=== PATIENT | female | born 1950 | race Caucasian/White ===

== ENCOUNTER 2017-07-21 16:55 | Emergency (ER) | payer MEDICARE, OTHER ==
[2016-04-05 08:01] VITALS: BMI 29.7
[~2017-07-21 16:55] MED LIST: BAYER CHEWABLE81 MG PO; CALCIUM 500 + D1 TAB PO; EZFE 200200 MG PO; GABAPENTIN100 MG PO; HYDROCHLOROTHIA50 MG PO; MAG-OX 400 MG400 MG PO; MULTIPLE VITAMI1 TA1 PO; NORVASC2.5 MG PO; OMEPRAZOLE40 MG PO; PEPCID40 MG PO; POTASSIUM99 M1 PO; PRILOSEC20 MG PO; VITAMIN B-1000 MCG/M; VITAMIN B-1000 MCG/M IM
[2017-07-21 17:33] LABS: BASOPHILS 0.3 % (0-2); EOSINOPHILS 1.3 % (0-7); HEMATOCRIT 35.3 % (36.0-48.0); HEMOGLOBIN 11.1 g/dL (12-16); IMMATURE GRANULOCYTES 0.2 % (0-5); LYMPHOCYTES 18.1 % (15-50); MCH 26.7 pg (26.0-34.0); MCHC 31.4 g/dL (31.0-37.0); MCV 84.9 fL (80.0-100.0); MEAN PLATELET VOLUME 9.9 fL (7.4-10.4); MONOCYTES 8.3 % (2-11); NEUTROPHILS 71.8 % (40-80); RBC 4.16 10x6/uL (4.00-5.40); RDW 14.2 % (11.5-14.5); WBC 6.1 10x3/uL (4.8-10.8)
[2017-07-21 17:37] LABS: PLATELET COUNT 320 10x3/uL (130-400)
[2017-07-21 17:59] LABS: ALBUMIN 3.4 g/dL (3.4-5.0); ALKALINE PHOSPHATASE 72 U/L (46-116); ALT (SGPT) 20 U/L (10-68); BILIRUBIN - TOTAL 0.13 mg/dL (0.2-1.3); CALC OSMOLALITY 293 mosm/kg (275-300); CALCIUM 9.1 mg/dL (8.5-10.1); CARBON DIOXIDE 31.2 mmol/L (21.0-32.0); CHLORIDE - SERUM 106 mmol/L (98-107); CREATININE - SERUM 1.1 mg/dL (0.6-1.3); GLUCOSE 93 mg/dL (74-106); POTASSIUM - SERUM 3.5 mmol/L (3.5-5.1); SODIUM 145 mmol/L (136-145); UREA NITROGEN 27 mg/dL (7-18); eGFR NON AFRICAN AMERICAN 52 mL/min (90-120)
[2017-07-21 18:01] LABS: CHOL - HDL RATIO 2.7 ratio (2.3-4.1); CHOLESTEROL, TOTAL 223 mg/dL (0-200); CKMB 0.4 U/L (0.0-3.6); CREATINE KINASE 71 UL (21-215); HDL CHOLESTEROL 83 mg/dL (32-96); LDL CHOLESTEROL 117 mg/dL (0-100); LDL-HDL RATIO 1.4 ratio (1.5-3.5); TRIGLYCERIDE 118 mg/dL (30-200)
[2017-07-21 18:26] LABS: TROPONIN-I < 0.017 ng/mL (0.000-0.060)
== END 2017-07-21 19:00 | disposition home or self-care (01) ==
LOC: D.ER 16:55
PROVIDERS: Emergency Medicine
DX: R07.89 Other chest pain (principal); I10 Essential (primary) hypertension; K21.9 Gastro-esophageal reflux disease without esophagitis; I49.3 Ventricular premature depolarization

== ENCOUNTER 2017-08-02 07:00 | Outpatient (CLI) | payer MEDICARE, OTHER ==
[~2017-08-02] VITALS: Ht 167.6 cm; Wt 84.1 kg
--- NOTE | ~2017-08-02 | HEMODYNAMI ---
PATIENT:JIMMIE CARDOSO MEDICAL RECORD: [id number] : 50 LOCATION:D.SUSI ADMISSION DATE: 08/02/17 Generatedon:08/02/20179:22 Patient name: JIMMIE CARDOSO Patient #: [id number] SSN: : 1950 Date of study: 08/02/2017 Page: Of Hemodynamic Procedure Report Patient Data Patient Demographics Procedure consent was obtained First Name: JIMMIE Gender: Female Last Name: WALKER : 1950 [facility] Initial: TARA Age: 67 year(s) Patient #: [id number] Race: Unknown Additional ID: [id number] Contact details Address: [address] [place] [address] State: [place] City: [place] Zip code: [address] Past Medical History Allergies Allergen Reaction Date Comments Reported Other allergy 12/03/2014 Meclymam Other allergy 08/02/2017 mecamylamine Admission Admission Data Admission Date: 08/02/2017 Admission Time: 9:00 Lab Results Lab Result Date: 08/02/2017 Lab Result Time: 7:30 Biochemistry Name Units Result Min Max BUN mg/dl 35 --(----)-* 7 18 Creatinine mg/dl 0.8 --(-*--)-- 0.6 1.3 CBC Name Units Result Min Max Hematocrit % 35 *-(----)-- 42 54 Hemoglobin g/dl 11.1 *-(----)-- 13.5 17.5 Procedure Procedure Types Cath Procedure Diagnostic Procedure LHC LHC w/Coronaries Miscellaneous Procedures Moderate Sedation up to 30 minutes Procedure Description Procedure Date Procedure Date: 08/02/2017 Procedure Start Time: 9:08 Procedure End Time: 9:21 Procedure Staff Name Function Felix Mores MD Performing Physician Ravi Casey RT Monitor Bertha Maldonado RT Scrub Scott Jensen RN Nurse Marvin Lizama RN Supervisor Pressing Department Procedure Data Cath Procedure Fluoroscopy Diagnostic fluoroscopy Total fluoroscopy Time: time: 1.73 min 1.73 min Diagnostic fluoroscopy Total fluoroscopy dose: 353 dose: 353 mGy mGy Contrast Material Contrast Material Type Amount (ml) Isovue 300 61 Entry Location Entry Primary Successful Side Size Upsize Upsize Entry Closure Succes sful Closure Location (Fr) 1 (Fr) 2 (Fr) Remarks Device Remarks Femoral Right 5 Fr Exoseal artery Estimated blood loss: 5 ml Diagnostic catheters Device Type Used For End Catheter Placement Cordis 5Fr JL 4.0 Procedure Catheter (MP) Cordis 5Fr 3DRC Catheter Procedure (MP) Cordis 5Fr Pigtail Procedure Catheter (MP) Procedure Complications No complications Procedure Medications Medication Administration Route Dosage Oxygen NC 2 l/min Lidocaine 2% added to field 20 Heparin Flush Bag added to field 2 bags (1000units/500ml NS) 0.9% NaCl I.V. 100 ml/hr Versed I.V. 1 mg Fentanyl I.V. 50 mcg Versed I.V. 1 mg Fentanyl I.V. 50 mcg Hemodynamics Rest HGB: 11.1 (g/dl) Heart Rate: 68 (bpm) Pressure Samples Time Site Value (mmHg) Purpose Heart Use Rate(bpm) 9:18 LV 163/2,28 EDP 63 9:18 LV 157/2,24 Snapshot 66 9:19 AO 156/79(110) Pullback 75 9:19 LV 182/8,20 Pullback 75 Gradients Valve Time Site 1 Site 2 Mean SEP/DFP Peak To Heart Use (mmHg) (sec/min) Peak Rate (mmHg) (bpm) Aortic 9:19 LV AO 14 19 26 75 182/8,20 156/79(110) Calculations Valve P-P Mean Valve Index Valve Source Name Gradient Area Flow (cm2) Aortic 26 14 26 14 Snapshots Pre Cath Intra NCS Post Cath Vital Signs Time Heart Resp SPO2 etCO2 NIBP (mmHg) Rhythm Pain Sedation Rate (ipm) (%) (mmHg) Status Level (bpm) 8:53:17 68 22 99 162/79(143) NSR 0 (11) 10(A) , No pain 8:58:04 64 18 98 156/84(137) NSR 0 (11) 10(A) , No pain 9:02:48 65 16 97 41.6 147/79(129) NSR 0 (11) 10(A) , No pain 9:07:31 61 15 98 44.6 130/74(104) NSR 0 (11) 9(A) , No pain 9:12:12 64 15 98 42.3 144/75(124) NSR 0 (11) 9(A) , No pain 9:16:54 65 15 98 42.3 148/78(127) NSR 0 (11) 9(A) , No pain 9:21:35 72 16 99 43.8 145/85(119) NSR 0 (11) 10(A) , No pain Medications Time Medication Route Dose Verified Delivered Reason Notes Effec tiveness by by 9:01:28 Oxygen NC 2 Felix Buffie used for l/min Lito Jensen RN procedure 9:01:36 Lidocaine 2% added 20ml Felix Buffie for local to vial Lito Jensen RN anesthetic field 9:01:43 Heparin Flush added 2 Felix Buffie used for Bag to bags Lito Jensen RN procedure (1000units/500ml field NS) 9:01:55 0.9% NaCl I.V. 100 Felix Buffie Per ml/hr Lito Jensen RN physician 9:04:03 Versed I.V. 1 mg Felix Buffie for Lito Jensen RN sedation 9:04:08 Fentanyl I.V. 50 Felix Buffie for mcg Lito Jensen RN sedation 9:13:26 Versed I.V. 1 mg Felix Buffie for Lito Jensen RN sedation 9:13:31 Fentanyl I.V. 50 Felix Buffie for mcg Lito Jensen RN sedation Procedure Log Time Note 8:30:16 Marvin Lizama RN sent for patient. Start room use. 8:38:38 Informed consent obtained and on chart 8:39:14 Diagnostic Cath status Elective 8:39:21 Time tracking: Regular hours 8:39:25 Plan of Care:Hemodynamics will remain stable., Cardiac rhythm will remain stable., Comfort level will be maintained., Respiratory function will remain adequate., Patient/ family verbilizes understanding of procedure., Procedure tolerated without complication., Recovers from procedure without complications.. 8:39:43 H&P Date Dictated: 07/16/2017 Within 30 days and on chart., H&P Addendum completed by physician on day of procedure. (MUST COMPLETE FOR ALL OUTPATIENTS). 8:42:21 Lab Result : Hemoglobin 11.1 g/dl 8:42:21 Lab Result : Hematocrit 35 % 8:42:21 Lab Result : BUN 35 mg/dl 8:42:21 Lab Result : Creatinine 0.8 mg/dl 8:45:11 Patient received from Pre/Post Procedure Room to CCL 1 Alert and oriented. Tansferred to table in Supine position. 8:49:19 Warm blankets applied, and kelsey hugger turned on for patient comfort. 8:49:20 Correct patient and procedure confirmed by team. 8:49:21 ECG and BP/O2 sat monitors applied to patient. 8:49:22 Pre-procedure instructions explained to patient. 8:49:23 Pre-op teaching completed and patient verbalized understanding. 8:49:25 Family in waiting room. 8:52:17 Vital chart was started 8:59:24 Baseline sample Acquired. 8:59:26 Rhythm: sinus rhythm 8:59:28 Full Disclosure recording started 8:59:58 Patient allergic to Other allergymecamylamine 9:00:00 Is the patient allergic to Iodine/contrast media? No. 9:00:18 Is patient on blood thinner?No 9:00:29 Patient diabetic? No. 9:00:36 Previous problem with sedation/anesthesia? No ? 9:00:37 Snore? Yes 9:00:38 Sleep apnea? No 9:00:39 Deviated septum? No 9:00:41 Opens mouth fully? Yes 9:00:41 Sticks out tongue? Yes 9:00:43 Airway obstruction? No ? 9:00:45 Dentures? No ? 9:00:48 Pre procedure: right dorsailis pedis pulse 2+ Normal; easily identifiable; not easily obliterated 9:00:50 Patient pain scale 0/10 ?. 9:01:20 IV patent on arrival in left antecubital with 0.9% NaCl at O. 9:01:28 Oxygen 2 l/min NC was administered by Scott Jensen RN; used for procedure; 9:01:35 Lab results completed and on chart. 9:01:36 Lidocaine 2% 20ml vial added to field was administered by Scott Jensen RN; for local anesthetic; 9:01:38 Right groin area was prepped with chlora-prep and draped in sterile fashion 9:01:40 Alarms reviewed by RCarmencita N. 9:01:40 Sharps counted by scrub and verified by R.N. 9:01:41 Physician arrived 9:01:43 Heparin Flush Bag (1000units/500ml NS) 2 bags added to field was administered by Scott Jensen RN; used for procedure; 9::47 Use device set Femoral Dx 9:01:48 Tegaderm 4 x 4 opened to sterile field. 9:01:50 Acist Hand Control opened to sterile field. 9:01:50 Acist Manifold opened to sterile field. 9:01:51 Acist Syringe opened to sterile field. 9:01:51 Bag Decanter opened to sterile field. 9:01:52 Medline Cath Pack opened to sterile field. 9:01:52 Terumo 5Fr [place] Sheath opened to sterile field. 9:01:53 St Mo 260cm J .035 wire opened to sterile field. 9:01:54 Diagnostic Infinity 5Fr Multipack catheter opened to sterile field. 9:01:55 0.9% NaCl 100 ml/hr I.V. was administered by Scott Jensen RN; Per physician; 9:02:00 --------ALL STOP TIME OUT------ 9:02:01 Final Timeout: patient, procedure, and site verified with staff and physician. All members of the team are in agreement. 9:02:02 Right groin site verified by team. 9:02:05 Physical assessment completed. ASA score P 2 - A patient with mild systemic disease as per Felix Morse MD. 9:02:08 Sedation plan: IV Moderate Sedation Medication:Versed, Fentanyl 9:02:22 Baseline sample Acquired. 9:04:03 Versed 1 mg I.V. was administered by Scott Jensen RN; for sedation; ::08 Fentanyl 50 mcg I.V. was administered by Scott Jensen RN; for sedation; 9:08:55 Procedure started. 9:08:58 Local anesthetic to right femoral artery with Lidocaine 2% by Felix Morse MD.INITIAL ACCESS ONLY 9:12:08 A 5 Fr sheath was inserted into the Right Femoral artery 9:13:17 A Cordis 5Fr JL 4.0 Catheter () was advanced over the wire and used for Procedure. 9:13:26 Versed 1 mg I.V. was administered by Scott Jensen RN; for sedation; 9:13:26 LCA angiography performed. 9:13:31 Fentanyl 50 mcg I.V. was administered by Sctot Jensen RN; for sedation; 9:15:20 Catheter exchanged over wire. 9:15:25 A Cordis 5Fr 3DRC Catheter (MP) was advanced over the wire and used for Procedure. 9:16:38 RCA angiography performed. 9:16:47 Catheter exchanged over wire. 9:16:58 A Cordis 5Fr Pigtail Catheter (MP) was advanced over the wire and used for Procedure. 9:17:12 Cordis 5Fr Exoseal opened to sterile field. 9:18:40 LV hemodynamics recorded. 9:18:45 Injector settings: Ml/sec: 10, Volume: 20, 9:18:59 EF : 55 % 9:19:41 LV gram done using PEREZ 9:19:44 Catheter removed. 9:19:51 Sheath removed intact; hemostasis achieved with Exoseal to the Right Femoral artery. 9:19:52 Procedure ended.(Physican Out) 9:20:20 Fluoroscopy time 01.73 minutes. 9:20:24 Fluoroscopy dose: 353 mGy 9:20:24 Flurop Dose total: 353 9:20:56 Contrast amount:Isovue 300 61ml. 9:20:57 Sharps counted by scrub and verified by R.N. 9:20:59 Insertion/operative site no bleeding no hematoma. 9:21:01 Post-op/insertion site Right Femoral artery dressed using a 4 x 4 and Tegaderm. 9:21:05 Post right femoral artery:stable, soft, clean and dry 9:21:06 Post Procedure Pulses reassessed and unchanged 9:21:08 Post-procedure physical assessment completed. ASA score P 2 - A patient with mild systemic disease as per Felix Morse MD. 9:21:10 Post procedure rhythm: unchanged. 9:21:12 Estimated blood loss: 5 ml 9:21:14 Post procedure instruction explained to patient.Patient verbalizes understanding. 9:21:14 Patient needs reinforcement of post procedure teaching. 9:21:25 Procedure type changed to Cath procedure, Diagnostic procedure, LHC, LHC w/Coronaries, Miscellaneous Procedures, Moderate Sedation up to 30 minutes 9:21:41 Procedure and supply charges have been captured, reviewed, submitted and are correct. 9:21:43 Procedure Complication : No complications 9:21:45 Vital chart was stopped 9:21:46 See physician's report for complete and final results. 9:21:47 Report given to Pre/Post Procedure Room. 9:21:49 Patient transfered to Pre/Post Procedure Room with Stretcher. 9:21:52 Procedure ended. 9:21:52 Full Disclosure recording stopped 9:22:26 End room use (Document Last) Device Usage Item Name Manufacture Quantity Catalog Hospital Part Current Minimal Lo t# / Number Charge Number Stock Stock Serial# Code Tegaderm 4 1 [id number] [id number] [id number] 5 x 4 Acist Hand Acist 1 08841 251823 841095 696457 5 Control [employer] Inc Acist Acist 1 72801 575354 506656 542430 5 Manifold [employer] Inc Acist Acist 1 20061 511067 147537 372747 20 Syringe [employer] Inc Bag Microtek 1 2002S 668143 37313 478940 5 [employer] Medline Cardinal 1 [id number] 689193 39905 303145 5 Cath Pack Health Terumo 5Fr Terumo 1 [id number] 823131 810119 843920 [address] Mo 1 [id number] 709453 673314 290293 30 260cm J .035 wire Diagnostic Cardinal 1 [id number] 908039 23588 342009 30 Infinity Health 5Fr Multipack catheter Cordis 5Fr Cardinal 1 405462 5 JL 4.0 Health Catheter (MP) Cordis 5Fr Cardinal 1 606695 5 3DRC Health Catheter (MP) Cordis 5Fr Cardinal 1 [id number] 5 Pigtail Health Catheter (MP) Cordis 5Fr Cardinal 1 EX500 153980 670914 481653 10 SpeakPhone Signature Audit [place] Stage Time Signature Unsigned Intra-Procedure 08/02/2017 Ravi Casey 9:22:42 AM RT(R) Signatures Monitor : Ravi Casey RT Signature : Date : Time : [id number] [place] [address]
[2017-08-02] MEDS ORDERED: TUMS500 MG PO (07:20)
[2017-08-02 07:43] LABS: BASOPHILS 0.5 % (0-2); HEMOGLOBIN 11.1 g/dL (12-16); LYMPHOCYTES 37.5 % (15-50); MCH 26.6 pg (26.0-34.0); MCHC 31.7 g/dL (31.0-37.0); MCV 83.9 fL (80.0-100.0); MONOCYTES 9.7 % (2-11); NEUTROPHILS 49.3 % (40-80); PLATELET COUNT 274 10x3/uL (130-400); RBC 4.17 10x6/uL (4.00-5.40); RDW 14.4 % (11.5-14.5); WBC 3.7 10x3/uL (4.8-10.8)
[2017-08-02 07:44] VITALS: BP 152/81; Ht 167.6 cm; Wt 84.1 kg
[2017-08-02 07:48] LABS: CALC OSMOLALITY 290 mosm/kg (275-300); CALCIUM 8.7 mg/dL (8.5-10.1); CARBON DIOXIDE 24.6 mmol/L (21.0-32.0); CHLORIDE - SERUM 108 mmol/L (98-107); CREATININE - SERUM 0.8 mg/dL (0.6-1.3); GLUCOSE 96 mg/dL (74-106); POTASSIUM - SERUM 4.4 mmol/L (3.5-5.1); SODIUM 142 mmol/L (136-145); UREA NITROGEN 35 mg/dL (7-18); eGFR NON AFRICAN AMERICAN 76 mL/min (90-120)
--- NOTE | 2017-08-02 09:57 | NUR ---
0950 LYING FLAT, ROOM AIR. NSR RATE 62 WNO C/O CHEST PAIN. PULSES PALP X 4. R GROIN 5F EXOSEAL C/D/I W NO HEMATOMA OR BLEEDING.
--- NOTE | 2017-08-02 11:40 | NUR ---
1020 LYING FLAT, ROOM AIR. ALL VITALS WNL. R GROIN EXOSEAL C/D/I. 1120 PIV REMOVED FROM LEFT AC WITH BANDAID APPLIED. AMBULATED TO BATHROOM TO VOID. R GROIN REMAINS C/D/I. UP TO BEDSIDE TO DRESS.
--- NOTE | 2017-08-02 11:52 | NUR ---
D/C INSTRUCTIONS DISCUSSED WITH PATIENT AND FRIEND AT BEDSIDE. WHEELED OUT VIA WHEELCHAIR BY CATH TEAM.
== END 2017-08-02 23:59 | disposition home or self-care (01) ==
LOC: D.CATH 07:00
PROVIDERS: Internal Medicine Cardiovascular Disease
DX: R55 Syncope and collapse (principal); R94.39 Abnormal result of other cardiovascular function study; Z01.812 Encounter for preprocedural laboratory examination

== ENCOUNTER → 2017-12-11 09:32 | Outpatient (CLI) | payer MEDICARE, OTHER ==
[2017-08-02 07:44] VITALS: BMI 29.9
[~2017-12-11 09:32] MED LIST changes: +TUMS500 MG PO
== END | disposition home or self-care (01) ==
LOC: D.RAD 09:32
DX: K21.9 Gastro-esophageal reflux disease without esophagitis (principal); R13.10 Dysphagia, unspecified

== ENCOUNTER 2018-01-24 06:47 | Outpatient (CLI) | payer MEDICARE, OTHER ==
[2017-08-02 07:44] VITALS: BMI 29.9
== END 2018-01-24 08:55 ==
LOC: D.OPS 06:47
DX: K21.9 Gastro-esophageal reflux disease without esophagitis (principal)

== ENCOUNTER 2018-03-27 06:35 | Inpatient (IN) | payer MEDICARE, OTHER ==
[2018-03-26 09:19] LABS: BASOPHILS 0.4 % (0-2); EOSINOPHILS 2.1 % (0-7); HEMOGLOBIN 10.2 g/dL (12-16); IMMATURE GRANULOCYTES 0.2 % (0-5); LYMPHOCYTES 34.2 % (15-50); MCHC 30.9 g/dL (31.0-37.0); MCV 80.9 fL (80.0-100.0); MEAN PLATELET VOLUME 9.6 fL (7.4-10.4); MONOCYTES 9.3 % (2-11); NEUTROPHILS 53.8 % (40-80); PLATELET COUNT 307 10x3/uL (130-400); RBC 4.08 10x6/uL (4.00-5.40); WBC 4.8 10x3/uL (4.8-10.8)
[~2018-03-27] VITALS: Ht 167.6 cm; Wt 86.4 kg
[2018-03-27] VITALS (9 sets, daily range): BP systolic 147–166; BP diastolic 75–86; Ht 167.6 cm; Wt 86.4 kg
[~2018-03-27 06:35] MED LIST changes: +MIRAPEX0.25 MG PO
[2018-03-28] VITALS: BP 156/71
[2018-03-28 04:00] VITALS: BP 134/62
[2018-03-28 05:23] LABS: BASOPHILS 0 % (0-2); EOSINOPHILS 0 % (0-7); HEMATOCRIT 30.3 % (36.0-48.0); HEMOGLOBIN 9.4 g/dL (12-16); IMMATURE GRANULOCYTES 0.1 % (0-5); LYMPHOCYTES 7.9 % (15-50); MCH 24.8 pg (26.0-34.0); MCV 79.9 fL (80.0-100.0); MEAN PLATELET VOLUME 9.3 fL (7.4-10.4); MONOCYTES 5.8 % (2-11); NEUTROPHILS 86.2 % (40-80); PLATELET COUNT 277 10x3/uL (130-400); RBC 3.79 10x6/uL (4.00-5.40); RDW 14.9 % (11.5-14.5)
[2018-03-28 05:37] LABS: ALBUMIN 2.9 g/dL (3.4-5.0); ALKALINE PHOSPHATASE 67 U/L (46-116); ALT (SGPT) 52 U/L (10-68); BILIRUBIN - TOTAL 0.31 mg/dL (0.2-1.3); CALC OSMOLALITY 276 mosm/kg (275-300); CALCIUM 8.2 mg/dL (8.5-10.1); CARBON DIOXIDE 27.1 mmol/L (21.0-32.0); CHLORIDE - SERUM 105 mmol/L (98-107); CREATININE - SERUM 0.8 mg/dL (0.6-1.3); GLUCOSE 118 mg/dL (74-106); POTASSIUM - SERUM 4.3 mmol/L (3.5-5.1); PROTEIN - SERUM 5.9 g/dL (6.4-8.2); SODIUM 137 mmol/L (136-145); UREA NITROGEN 17 mg/dL (7-18); eGFR NON AFRICAN AMERICAN 76 mL/min (90-120)
[2018-03-28 05:42] LABS: WBC 6.9 10x3/uL (4.8-10.8)
[2018-03-28] MEDS ORDERED: HYDROCODON-ACE1 EAC7 PO (08:37)
[2018-03-28 11:09] VITALS: BP 126/60
[2018-03-28 15:54] VITALS: BP 121/63
== END 2018-03-28 16:58 | disposition home or self-care (01) | DRG 328 ==
LOC: D.MS 06:35 → D.SDCHOLD 06:35 → EDSTATUS 09:00 → D.SDCHOLD 09:00 → D.PAN 09:00 → D.OPS 09:00 → D.MS 16:44
PROVIDERS: Anesthesiology; Surgery
PROC: 0DV44CZ Restriction of Esophagogastric Junction with Extraluminal Device, Percutaneous Endoscopic Approach (ICD-10-PCS; principal; 2018-03-27 08:45)
PROC: 0BQT4ZZ Repair Diaphragm, Percutaneous Endoscopic Approach (ICD-10-PCS; 2018-03-27 08:45)
DX: K21.0 Gastro-esophageal reflux disease with esophagitis (principal); K44.9 Diaphragmatic hernia without obstruction or gangrene; I10 Essential (primary) hypertension; K25.9 Gastric ulcer, unspecified as acute or chronic, without hemorrhage or perforation

== ENCOUNTER 2018-04-25 15:37 | Observation (INO) | payer MEDICARE, OTHER ==
[~2018-04-25] VITALS: Ht 167.6 cm; Wt 86.2 kg
[~2018-04-25 15:37] MED LIST changes: +HYDROCODON-ACE1 EAC7 PO
[2018-04-25] MEDS ORDERED: NORVASC10 MG PO (15:57)
[2018-04-25 16:38] LABS: BASOPHILS 0.3 % (0-2); EOSINOPHILS 3.3 % (0-7); HEMATOCRIT 31.8 % (36.0-48.0); LYMPHOCYTES 17.5 % (15-50); MCH 25.6 pg (26.0-34.0); MCHC 31.4 g/dL (31.0-37.0); MCV 81.3 fL (80.0-100.0); MONOCYTES 11.3 % (2-11); NEUTROPHILS 67.6 % (40-80); PLATELET COUNT 253 10x3/uL (130-400); RBC 3.91 10x6/uL (4.00-5.40); RDW 16.8 % (11.5-14.5); WBC 5.8 10x3/uL (4.8-10.8)
[2018-04-25 16:46] LABS: INR 0.95 (0.85-1.17); PROTIME 12.3 SECONDS (11.6-15.0)
[2018-04-25 16:53] LABS: ALBUMIN 3.1 g/dL (3.4-5.0); ALKALINE PHOSPHATASE 63 U/L (46-116); ALT (SGPT) 24 U/L (10-68); BILIRUBIN - TOTAL 0.31 mg/dL (0.2-1.3); CALC OSMOLALITY 287 mosm/kg (275-300); CALCIUM 8.4 mg/dL (8.5-10.1); CARBON DIOXIDE 27.2 mmol/L (21.0-32.0); CHLORIDE - SERUM 108 mmol/L (98-107); CREATININE - SERUM 0.8 mg/dL (0.6-1.3); GLUCOSE 114 mg/dL (74-106); POTASSIUM - SERUM 3.2 mmol/L (3.5-5.1); PROTEIN - SERUM 6.3 g/dL (6.4-8.2); SODIUM 143 mmol/L (136-145); UREA NITROGEN 18 mg/dL (7-18); eGFR NON AFRICAN AMERICAN 76 mL/min (90-120)
[2018-04-25 17:01] LABS: LIPASE 143 U/L (73-393); PRO BNP 403 pg/mL (0-125); TROPONIN-I < 0.017 ng/mL (0.000-0.060)
[2018-04-25 17:08] LABS: D-DIMER-QUANTITATIVE 0.72 ug/mLFEU (0.20-0.54)
[2018-04-25 19:15] VITALS: BP 161/76
[2018-04-25 21:29] VITALS: BP 199/106
[2018-04-26] VITALS (8 sets, daily range): BP systolic 116–161; BP diastolic 52–79; Ht 167.6 cm; Wt 86.2 kg
[2018-04-26 00:23] LABS: APPEARANCE CLOUDY (CLEAR); COLOR YELLOW (YELLOW); SPECIFIC GRAVITY 1.015 (1.005-1.020)
[2018-04-26 00:24] LABS: BILIRUBIN NEGATIVE (NEGATIVE); GLUCOSE NEGATIVE (NEGATIVE); KETONE NEGATIVE (NEGATIVE); NITRITE NEGATIVE (NEGATIVE); PROTEIN NEGATIVE (NEGATIVE); UROBILINOGEN NORMAL (NORMAL)
[2018-04-26 00:25] LABS: BACTERIA MANY /hpf (NONE SEEN); EPITHELIAL CELLS 0-5 /hpf (0-5); RED CELLS - URINE 0-5 /hpf (0-5)
[2018-04-26 05:48] LABS: BASOPHILS 0.2 % (0-2); EOSINOPHILS 6.5 % (0-7); HEMATOCRIT 28.2 % (36.0-48.0); HEMOGLOBIN 8.8 g/dL (12-16); IMMATURE GRANULOCYTES 0.2 % (0-5); LYMPHOCYTES 27.2 % (15-50); MCH 25.1 pg (26.0-34.0); MCHC 31.2 g/dL (31.0-37.0); MCV 80.3 fL (80.0-100.0); MEAN PLATELET VOLUME 10.2 fL (7.4-10.4); MONOCYTES 9.4 % (2-11); NEUTROPHILS 56.5 % (40-80); PLATELET COUNT 225 10x3/uL (130-400); RBC 3.51 10x6/uL (4.00-5.40); RDW 16.7 % (11.5-14.5); WBC 4.3 10x3/uL (4.8-10.8)
[2018-04-26 06:05] LABS: CALC OSMOLALITY 286 mosm/kg (275-300); CALCIUM 8.1 mg/dL (8.5-10.1); CHLORIDE - SERUM 108 mmol/L (98-107); CREATININE - SERUM 0.8 mg/dL (0.6-1.3); GLUCOSE 108 mg/dL (74-106); POTASSIUM - SERUM 3.6 mmol/L (3.5-5.1); SODIUM 143 mmol/L (136-145); UREA NITROGEN 14 mg/dL (7-18); eGFR NON AFRICAN AMERICAN 76 mL/min (90-120)
[2018-04-27] VITALS: BP 138/77
[2018-04-27 04:00] VITALS: BP 119/64
[2018-04-27 05:29] LABS: BASOPHILS 0 % (0-2); EOSINOPHILS 0 % (0-7); HEMATOCRIT 30.8 % (36.0-48.0); HEMOGLOBIN 9.7 g/dL (12-16); IMMATURE GRANULOCYTES 0.2 % (0-5); LYMPHOCYTES 8.3 % (15-50); MCH 25.2 pg (26.0-34.0); MCHC 31.5 g/dL (31.0-37.0); MEAN PLATELET VOLUME 10.6 fL (7.4-10.4); MONOCYTES 0.4 % (2-11); NEUTROPHILS 91.1 % (40-80); PLATELET COUNT 259 10x3/uL (130-400); RBC 3.85 10x6/uL (4.00-5.40); RDW 16.6 % (11.5-14.5); WBC 4.7 10x3/uL (4.8-10.8)
[2018-04-27 05:50] LABS: ANION GAP 10.9 mmol/L (8-16); CALCIUM 8.3 mg/dL (8.5-10.1); CARBON DIOXIDE 27.2 mmol/L (21.0-32.0); CREATININE - SERUM 0.9 mg/dL (0.6-1.3); POTASSIUM - SERUM 4.1 mmol/L (3.5-5.1)
[2018-04-27 09:06] VITALS: BP 163/82
[2018-04-27 09:13] LABS: FOLATE (FOLIC ACID) - SERUM 7.5 ng/mL (>3.0)
[2018-04-27 11:15] VITALS: BP 128/70
[2018-04-27] MEDS ORDERED: MEDROL DOSE PACK4 MG PO (15:51)
== END 2018-04-27 18:40 | disposition home or self-care (01) ==
LOC: D.ER 15:37 → D.EDHOLD 18:17 → OBSVTIME 18:18 → D.MS 19:10
PROVIDERS: Family Medicine
DX: K21.0 Gastro-esophageal reflux disease with esophagitis (principal); R22.0 Localized swelling, mass and lump, head; R20.2 Paresthesia of skin; I10 Essential (primary) hypertension; R10.30 Lower abdominal pain, unspecified; D32.0 Benign neoplasm of cerebral meninges

== ENCOUNTER 2018-06-20 05:05 | Inpatient (IN) | payer MEDICARE, OTHER ==
[2018-06-19 11:24] LABS: HEMOGLOBIN 10.1 g/dL (12-16); MCH 25.5 pg (26.0-34.0); MCHC 31.6 g/dL (31.0-37.0); MCV 80.8 fL (80.0-100.0); MEAN PLATELET VOLUME 9.5 fL (7.4-10.4); RBC 3.96 10x6/uL (4.00-5.40); RDW 15.5 % (11.5-14.5); WBC 5.7 10x3/uL (4.8-10.8)
[2018-06-19 11:32] LABS: CALC OSMOLALITY 275 mosm/kg (275-300); CALCIUM 8.7 mg/dL (8.5-10.1); CARBON DIOXIDE 29.9 mmol/L (21.0-32.0); CHLORIDE - SERUM 105 mmol/L (98-107); CREATININE - SERUM 0.7 mg/dL (0.6-1.3); POTASSIUM - SERUM 3.7 mmol/L (3.5-5.1); SODIUM 138 mmol/L (136-145); UREA NITROGEN 13 mg/dL (7-18); eGFR NON AFRICAN AMERICAN 88 mL/min (90-120)
[2018-06-19 11:56] LABS: GLUCOSE 94 mg/dL (74-106)
[2018-06-20] VITALS (19 sets, daily range): BP systolic 116–151; BP diastolic 61–86; BMI 28.8; BMI 26.9
[~2018-06-20] VITALS: Ht 167.6 cm; Wt 75.6 kg
--- NOTE | ~2018-06-20 | OP ---
PATIENT NAME: JIMMIE CARDOSO MEDICAL RECORD: [id number] :50 [facility] AD[facility] DATE:06/20/18 SURGEON: HERMILA TREJO MD DATE OF OPERATION: 06/20/2018 DATE OF SERVICE: 06/20/2018 PREOPERATIVE DIAGNOSIS: Left temporal tip meningioma. POSTOPERATIVE DIAGNOSIS: Left temporal tip meningioma. PROCEDURE: Left temporal craniotomy with navigation with Mariusz navigation, intraoperative monitoring with navigation, microscopic illumination. SURGEON: Hermila Trejo MD PRIMARY CARE PHYSICIAN: Heath Wayne MD DESCRIPTION AND TECHNIQUE: After induction of general endotracheal anesthesia, the patient was placed in Magana head pins and positioned supine on the operating table. Scalp was prepped and draped in usual sterile fashion. Registration took place with fiducial markers and [place] navigation. Skull and scalp flap planning were placed after this. After sterile prep and drape, a curvilinear incision was carried out at the root the left zygoma up to Davide's point. Rahul clips were applied for scalp hemostasis. Temporalis muscle was divided with Bovie cautery down to the root of zygoma. This was reflected anterolaterally in a subperiosteal manner. A foreign hole was created over the root of the left zygoma. This was well centered over the tumor as confirmed with a Mariusz navigation. Additional bone was removed with the [place] rongeurs. Following this, the dura was well centered over the tumor. The dura was opened in a cruciate manner with bipolar cautery and #11 blade. There was obvious tumor on the surface of the brain in the anterior temporal tip. This was dissected away from the brain in a subarachnoid fashion with bipolar cautery and microscissors. There was a small anchoring at the base of the dura. The dura was removed in this area with bipolar cautery and then sharp dissection with #15-blade. The tumor was sent to pathology for diagnosis of what appeared to be a gross total resection of the tumor. Meticulous hemostasis was maintained throughout the wound. The wound was irrigated with copious amounts of lukewarm saline irrigant solution. Next, the Duragen patch was used to repair the dura. A titanium plate and screw were used to cover the craniotomy defect. Next, the temporalis muscle was reapproximated with interrupted 2-0 Vicryl suture. The galea was reapproximated with interrupted 2-0 Vicryl sutures. The skin was closed with joshua. A sterile dressing was applied to the wound. The patient was awakened in good condition and taken to recovery. All counts were reported as correct. Estimated blood loss was minimal. TRANSINT:[id number] Voice Confirmation ID: [id number] DOCUMENT ID: [id number] OPERATIVE REPORT [id number] JIMMIE CARDOSO JOHN MD at 1239 CC: [id number] DICTATION DATE: 06/20/18 1115 PACKER INSPECTOR: 06/20/18 1144 ADM IN [facility] [address] [id number]
[~2018-06-20 05:05] MED LIST changes: +MEDROL DOSE PACK4 MG PO; +MODURETIC 5/501 TAB PO; +NORVASC10 MG PO
[2018-06-21] VITALS (21 sets, daily range): BP systolic 108–144; BP diastolic 38–95
[2018-06-22 03:00] VITALS: BP 134/76
[2018-06-22 07:00] VITALS: BP 166/86
[2018-06-22 11:00] VITALS: BP 119/64
[2018-06-22 15:07] VITALS: BP 122/68
[2018-06-22 15:30] LABS: CKMB 1.5 U/L (0.0-3.6); CREATINE KINASE 327 UL (21-215); TROPONIN-I < 0.017 ng/mL (0.000-0.060)
[2018-06-22 18:06] VITALS: Ht 167.6 cm; Wt 75.6 kg
[2018-06-22 19:39] LABS: CKMB 1.5 U/L (0.0-3.6); CREATINE KINASE 325 UL (21-215)
[2018-06-22 19:46] LABS: TROPONIN-I < 0.017 ng/mL (0.000-0.060)
[2018-06-22 19:58] VITALS: BP 99/51
[2018-06-23] VITALS: BP 133/67
[2018-06-23 01:43] LABS: CKMB 1.4 U/L (0.0-3.6); CREATINE KINASE 248 UL (21-215)
[2018-06-23 01:44] LABS: TROPONIN-I < 0.017 ng/mL (0.000-0.060)
[2018-06-23 04:00] VITALS: BP 127/73
[2018-06-23 09:32] VITALS: BP 131/65
[2018-06-23 12:00] VITALS: BP 110/71
[2018-06-23 16:00] VITALS: BP 114/66
[2018-06-23 21:11] VITALS: BP 144/66
[2018-06-24] VITALS: BP 107/50
[2018-06-24 06:05] VITALS: BP 114/66
[2018-06-24 08:38] VITALS: BP 136/67
[2018-06-24] MEDS ORDERED: NORCO 10-325 TA1 TAB PO (10:58)
== END 2018-06-24 11:28 | disposition home or self-care (01) | DRG 27 ==
LOC: D.SDCHOLD 05:05 → D.ICU 05:05 → D.SDCHOLD 07:30 → D.OPS 10:30 → EDSTATUS 10:30 → D.SDCHOLD 10:30 → D.ICU 11:44 → D.MS 06-22 17:58
PROVIDERS: Anesthesiology; Family Medicine; Neurological Surgery
PROC: 00B10ZZ Excision of Cerebral Meninges, Open Approach (ICD-10-PCS; principal; 2018-06-20 07:30)
DX: D32.0 Benign neoplasm of cerebral meninges (principal); I10 Essential (primary) hypertension; K21.9 Gastro-esophageal reflux disease without esophagitis; R07.89 Other chest pain

== ENCOUNTER → 2018-12-04 07:26 | Outpatient (CLI) | payer MEDICARE, OTHER ==
[2018-06-22 18:06] VITALS: BMI 26.9
[~2018-12-04 07:26] MED LIST changes: +NORCO 10-325 TA1 TAB PO
== END | disposition home or self-care (01) ==
LOC: D.MRI 07:26
PROVIDERS: ATTEND Neurological Surgery
DX: D32.0 Benign neoplasm of cerebral meninges (principal)

== ENCOUNTER → 2019-02-18 07:54 | Outpatient (CLI) | payer MEDICARE, OTHER ==
[2018-06-22 18:06] VITALS: BMI 26.9
== END | disposition home or self-care (01) ==
LOC: D.RAD 07:54
PROVIDERS: ATTEND Family Medicine
DX: R63.4 Abnormal weight loss (principal)

== ENCOUNTER → 2019-11-25 10:32 | Outpatient (CLI) | payer MEDICARE, OTHER ==
[2018-06-22 18:06] VITALS: BMI 26.9
== END | disposition home or self-care (01) ==
LOC: D.MRI 10:32
PROVIDERS: ATTEND Neurological Surgery
DX: D33.2 Benign neoplasm of brain, unspecified (principal)

== ENCOUNTER → 2020-02-26 08:45 | Outpatient (CLI) | payer MEDICARE, OTHER ==
[2018-06-22 18:06] VITALS: BMI 26.9
== END | disposition home or self-care (01) ==
LOC: D.RAD 08:45
PROVIDERS: ATTEND Family Medicine
DX: K21.0 Gastro-esophageal reflux disease with esophagitis (principal); R13.10 Dysphagia, unspecified

== ENCOUNTER → 2020-06-21 07:58 | Outpatient (CLI) | payer MEDICARE, OTHER ==
[2018-06-22 18:06] VITALS: BMI 26.9
== END | disposition home or self-care (01) ==
LOC: D.RAD 07:58
PROVIDERS: ATTEND Internal Medicine Gastroenterology
DX: K21.9 Gastro-esophageal reflux disease without esophagitis (principal)

== ENCOUNTER → 2020-12-07 08:45 | Outpatient (CLI) | payer MEDICARE, OTHER ==
[2018-06-22 18:06] VITALS: BMI 26.9
== END | disposition home or self-care (01) ==
LOC: D.MRI 08:45
PROVIDERS: ATTEND Neurological Surgery
DX: D33.2 Benign neoplasm of brain, unspecified (principal)

== ENCOUNTER 2021-02-10 09:30 | Outpatient (CLI) | payer MEDICARE, OTHER ==
[2018-06-22 18:06] VITALS: BMI 26.9
== END 2021-02-10 10:00 | disposition home or self-care (01) ==
LOC: D.MAMMO 09:30
PROVIDERS: ATTEND Family Medicine
DX: Z12.31 Encounter for screening mammogram for malignant neoplasm of breast (principal)

== ENCOUNTER 2021-03-02 10:30 | Outpatient (CLI) | payer MEDICARE, OTHER ==
[2018-06-22 18:06] VITALS: BMI 26.9
== END 2021-03-02 23:59 | disposition home or self-care (01) ==
LOC: D.MAMMO 10:30
PROVIDERS: ATTEND Family Medicine
DX: R92.8 Other abnormal and inconclusive findings on diagnostic imaging of breast (principal)

== ENCOUNTER 2021-03-10 14:05 | Outpatient (CLI) | payer MEDICARE, OTHER ==
[2018-06-22 18:06] VITALS: BMI 26.9
== END 2021-03-10 23:59 | disposition home or self-care (01) ==
LOC: D.MAMMO 14:05
PROVIDERS: ATTEND Family Medicine
DX: N63.10 Unspecified lump in the right breast, unspecified quadrant (principal)